=== PATIENT | female | born 1980 | race African-American/Black ===

== ENCOUNTER 2016-08-20 21:34 | Emergency (ER) | payer OTHER ==
[~2016-08-20] VITALS: Ht 162.6 cm; Wt 81.8 kg
[~2016-08-20 21:34] MED LIST: MOTRIN800 MG PO
[2016-08-20 22:00] VITALS: BP 137/94
== END 2016-08-20 22:20 | disposition home or self-care (01) ==
LOC: EME 21:34 → EXP 21:34
DX: S60.444A External constriction of right ring finger, initial encounter (principal); W49.04XA Ring or other jewelry causing external constriction, initial encounter
CPT/HCPCS: 99281; 99282